=== PATIENT | male | born 1970 | race Caucasian/White ===

== ENCOUNTER 2019-02-23 19:41 | Emergency (ER) | payer MEDICAID, OTHER ==
[~2019-02-23] VITALS: Ht 154.9 cm; Wt 86.4 kg
[2019-02-23 19:44] VITALS: Ht 154.9 cm; Wt 86.4 kg
[2019-02-23] MEDS ORDERED: SOD CHLORIDE 0.9% 1,000 ML IV STA (19:56)
[2019-02-23] MEDS ORDERED: ONDANSETRON 4 MG INJ IV STA (19:56)
[2019-02-23] MEDS ORDERED: morphine 4 MG/ML VIAL IV STA (19:56)
[2019-02-23] MEDS ORDERED: SOD CHLORIDE 0.9% 100 ML ONE ×2 (20:38→22:21)
[2019-02-23] MEDS ORDERED: IOHEXOL 100 ML ONE ×2 (20:39→22:21)
[2019-02-23] MEDS ORDERED: IBUP-1542 PO (21:00)
[2019-02-23] MEDS ORDERED: PANT40TA3 PO (21:00)
[2019-02-23] MEDS ORDERED: ONDA4TAB14 PO (21:00)
--- NOTE | 2019-02-23 21:02 | ERD ---
ER Documentation Chief Complaint Chief Complaint C/O LT UPPER ABDOMINAL PAIN X5 DAYS HPI Patient is a 48-year-old male with no medical problems who presents with abdominal pain. The patient reports 1 week of left upper quadrant abdominal pain. It has been constant and he says that it bothers him. He has bilateral arm pain as well. He has had no treatment as of yet. Upon review of old medical records patient one previous visit to the ER in 2007. He does not remember the name of his primary doctor. ROS All systems reviewed and are negative except as per history of present illness. Medications Home Meds Active Scripts Ondansetron (Ondansetron Odt) 4 Mg Tab.rapdis, 4 MG PO Q6H PRN for NAUSEA AND/OR VOMITING, #10 TAB Prov:BARRON MULLINS MD 02/23/19 Ibuprofen* (Motrin*) 600 Mg Tab, 600 MG PO Q6H PRN for PAIN AND OR ELEVATED TEMP, #30 TAB Prov:BARRON MULLINS MD 02/23/19 Pantoprazole* (Protonix*) 40 Mg Tablet.dr, 40 MG PO DAILY, #20 TAB Prov:BARRON MULLINS MD 02/23/19 Allergies Allergies: Coded Allergies: No Known Allergy (Unverified , 02/23/19) PMhx/Soc Medical and Surgical Hx: pt denies Medical Hx, pt denies Surgical Hx Hx Alcohol Use: No Hx Substance Use: No Hx Tobacco Use: No Smoking Status: Never smoker FmHx Family History: No diabetes Physical Exam Vitals Vital Signs Date Temp Pulse Resp B/P (MAP) Pulse Ox O2 O2 Flow FiO2 Time Delivery Rate 02/23/19 97.3 88 18 164/85 99 Room Air 20:03 (111) 02/23/19 97.3 82 22 185/95 99 19:44 (125) Physical Exam Const: No acute distress Head: Atraumatic Eyes: Normal Conjunctiva ENT: Normal External Ears, Nose and Mouth. Neck: Full range of motion. No meningismus. Resp: Clear to auscultation bilaterally Cardio: Regular rate and rhythm, no murmurs Abd: Soft, non tender, non distended. Normal bowel sounds Skin: No petechiae or rashes Back: No midline or flank tenderness Ext: No cyanosis, or edema Neur: Awake and alert Psych: Normal Mood and Affect Result Diagram: 02/23/19199902/23/191999 Results 24 hrs Laboratory Tests Test 02/23/19 20:00 White Blood Count 8.3 10^3/ul Red Blood Count 5.21 10^6/ul Hemoglobin 15.7 g/dl Hematocrit 46.0 % Mean Corpuscular Volume 88.3 fl Mean Corpuscular Hemoglobin 30.1 pg Mean Corpuscular Hemoglobin Concent 34.1 g/dl Red Cell Distribution Width 12.8 % Platelet Count 179 10^3/UL Mean Platelet Volume 10.9 fl Immature Granulocytes % 0.500 % Neutrophils % 43.3 % Lymphocytes % 43.5 % Monocytes % 10.0 % Eosinophils % 2.3 % Basophils % 0.4 % Nucleated Red Blood Cells % 0.0 /100WBC Immature Granulocytes # 0.040 10^3/ul Neutrophils # 3.6 10^3/ul Lymphocytes # 3.6 10^3/ul Monocytes # 0.8 10^3/ul Eosinophils # 0.2 10^3/ul Basophils # 0.0 10^3/ul Nucleated Red Blood Cells # 0.0 10^3/ul Urine Color YELLOW Urine Clarity CLEAR Urine pH 6.0 Urine Specific Cecil 1.023 Urine Ketones NEGATIVE mg/dL Urine Nitrite NEGATIVE mg/dL Urine Bilirubin NEGATIVE mg/dL Urine Urobilinogen 1+ mg/dL Urine Leukocyte Esterase NEGATIVE Shelbi/ul Urine Hemoglobin NEGATIVE mg/dL Urine Glucose NEGATIVE mg/dL Urine Total Protein NEGATIVE mg/dl Sodium Level 143 mmol/L Potassium Level 4.0 mmol/L Chloride Level 107 mmol/L Carbon Dioxide Level 25 mmol/L Anion Gap 11 Blood Urea Nitrogen 15 mg/dl Creatinine 0.90 mg/dl Est Glomerular Filtrat Rate mL/min > 60 mL/min Glucose Level 121 mg/dl Calcium Level 9.8 mg/dl Total Bilirubin 0.4 mg/dl Direct Bilirubin 0.00 mg/dl Indirect Bilirubin 0.4 mg/dl Aspartate Amino Transf (AST/SGOT) 37 IU/L Alanine Aminotransferase (ALT/SGPT) 63 IU/L Alkaline Phosphatase 99 IU/L Troponin I < 0.012 ng/ml Total Protein 8.8 g/dl Albumin 4.7 g/dl Globulin 4.10 g/dl Albumin/Globulin Ratio 1.14 Lipase 138 U/L Current Medications Medications Dose Sig/Richy Start Time Status Last (Trade) Ordered Route PRN Stop Time Admin Dose Reason Admin Sodium 1,000 ml @ Q1H STAT 02/23/19 DC 02/23/19 Chloride 1,000 mls/hr IV 19:56 20:10 02/23/19 20:55 Morphine 4 mg ONCE STAT 02/23/19 DC 02/23/19 Sulfate IV 19:56 20:10 (morphine) 02/23/19 19:58 Ondansetron 4 mg ONCE STAT 02/23/19 DC 02/23/19 HCl (Zofran IV 19:56 20:10 Inj) 02/23/19 19:58 IV Flush 10 ml STK-MED 02/23/19 DC (NS 10 ml) ONCE .ROUTE 20:38 02/23/19 20:39 Sodium 100 ml @ ud STK-MED 02/23/19 DC Chloride ONCE .ROUTE 20:38 02/23/19 20:39 Iohexol 100 ml @ ud STK-MED 02/23/19 DC ONCE .ROUTE 20:39 02/23/19 20:40 Procedures/MDM EKG read by me: Rate/Rhythm: Regular rate and rhythm at a rate of 84 Intervals: Normal Impression: No evidence of ischemia or arrhythmia Chest x-ray negative per radiology. CT scan of the chest, abdomen, and pelvis pending at this time. Patient is a 48-year-old male who presents with left upper quadrant abdominal pain. He also has bilateral arm pain and was hypertensive upon arrival. Because of this I want to rule out acute aortic dissection. Laboratory studies are normal including a negative troponin. LFTs and lipase are normal. Chest x- ray was negative. EKG shows no signs of ischemia. CT scan of the chest, abdomen, and pelvis is pending at this time. The patient will be signed out to the oncoming provider. The CT scan is negative I believe outpatient management would be appropriate. Departure Diagnosis: Primary Impression: Abdominal pain Abdominal location: left upper quadrant Qualified Codes: R10.12 - Left upper quadrant pain Condition: Fair Patient Instructions: Abdominal Pain Referrals: [facility], [facility] (PCP) Additional Instructions: Llame al doctor MAANA y azeem svitlana VANNA PARA DENTRO DE 1-2 DUNLAP.Dgale a la secretaria que nosotros le instruimos hacer esta vanna.Avise o llame si go condicin se empeora antes de la vanna. Regresa aqui si peor o no mejor. BARRON MULLINS MD Feb 23, 2019 21:02
[2019-02-24 01:10] VITALS: BP 118/80; PULSE 70; RESP 18
== END 2019-02-24 01:26 | disposition home or self-care (01) ==
LOC: E/R 19:41
DX: R10.12 Left upper quadrant pain (principal)
CPT/HCPCS: 71045; 71275; 75635; 80053; 81003; 83690; 84484; 85025; 93005; J2270; J2405; J7030; Q9967; Z7610; 36415; 96374; 96375